=== PATIENT | female | born 1935 | race African-American/Black ===

== ENCOUNTER 2017-04-12 13:41 | Emergency (ER) | payer MEDICAID, MEDICARE, OTHER ==
[~2017-04-12] VITALS: Ht 160 cm; Wt 84.4 kg
[~2017-04-12 13:41] MED LIST: PERCOCET 5-3251 EACH ORAL
[2017-04-12] MEDS ORDERED: BENAZEPRIL HCL40 MG ORAL (14:01)
[2017-04-12] MEDS ORDERED: HYDROCHLOROTHIA50 MG ORAL (14:01)
[2017-04-12 14:05] VITALS: BP 139/69
[2017-04-12] MEDS ORDERED: BRIMONIDINE TART5 ML BOTH EYES (14:05)
[2017-04-12] MEDS ORDERED: TIMOPTIC 0.5%1 DRO1 BOTH EYES (14:05)
[2017-04-12] MEDS ORDERED: Albuterol ud Inhalation HHN ONE (14:30)
--- NOTE | 2017-04-12 15:01 | Emergency Room Report ---
History of Present Illness General Chief Complaint: Upper Respiratory Illness Source: Patient Present Illness HPI 81YOF walk-in with 4 days productive white sputum cough. No sinus congestion or sore throat, chest pain, or fever/chills. Not taking any medications. Lives at home. History of DM with glaucoma. Allergies: Coded Allergies: No Known Allergies (Unverified , 02/18/15) Patient History Past Medical History: DM Past Surgical History: none Pertinent Family History: none Social History: Denies: alcohol use, drug use, smoking Now: No Immunizations: UTD Reviewed Nursing Documentation: PMH: Agreed, PSxH: Agreed Nursing Documentation-PM Past Medical History: No History, Except For Hx Hypertension: Yes Hx Diabetes: Yes Review of Systems All Other Systems: negative except mentioned in HPI Physical Exam Vital Signs Date Time Temp Pulse Resp B/P Pulse Ox O2 Delivery O2 Flow Rate FiO2 04/12/17 13:55 96.1 59 16 134/63 99 Room Air 04/12/17 14:35 21 Sp02 EP Interpretation: reviewed, normal General Appearance: normal inspection, well appearing, no apparent distress, alert, GCS 15, non-toxic, other - Elderly well appearing lady sitting upright in stretcher. Conversant, pleasant Head: normocephalic, atraumatic Eyes: bilateral eye EOMI, bilateral eye PERRL ENT: normal ENT inspection, hearing grossly normal, normal voice Neck: normal inspection, full range of motion, supple, no meningismus, no bony tend Respiratory: normal inspection, lungs clear, normal breath sounds, no respiratory distress, no retraction, crackles, other - Crackles to right posterior upper lung Cardiovascular #1: regular rate, rhythm, no edema Gastrointestinal: normal inspection, normal bowel sounds, non tender, soft, no guarding, no hernia Genitourinary: no CVA tenderness Musculoskeletal: normal inspection, back normal, normal range of motion, Petey' s Sign negative Neurologic: normal inspection, alert, oriented x3, responsive, jailer III-XII nml as tested, motor strength/tone normal, speech normal Psychiatric: normal inspection, judgement/insight normal, mood/affect normal Skin: normal inspection, normal color, no rash Medical Decision Making Diagnostic Impression: Primary Impression: CAP (community acquired pneumonia) Additional Impression: Cough ER Course 81 YOF with clinical PNA. Crackles to right upper chest CXR without lobar PNA Afebrile. Will tx empirically for CAP Initial dose of Azithro given in ED Rx 4 days Azithro, T#3 as needed for cough Close PMD followup Chest X-Ray Diagnostic Results EP Interpretation: Yes Findings: no consolidation, no effusion, no pneumothorax, no acute cardiopulmonary disease Number of Views: 1 Last Vital Signs Date Time Temp Pulse Resp B/P Pulse Ox O2 Delivery O2 Flow Rate FiO2 04/12/17 14:35 21 04/12/17 14:35 54 16 99 Room Air 04/12/17 13:55 96.1 134/63 Status: improved Disposition: HOME, SELF-CARE Referrals: [facility] (PCP) MURALI JACKSON M.D. Apr 12, 2017 15:01
[2017-04-12] MEDS ORDERED: ZITHROMAX250 MG ORAL (15:03)
[2017-04-12] MEDS ORDERED: ACETAMINOPHEN-1 EAC1 ORAL (15:03)
[2017-04-12] MEDS ORDERED: Azithromycin 250mg tab ORAL ONE (15:15)
[2017-04-12 15:30] VITALS: BP 122/105
--- NOTE | 2017-04-13 12:17 | Diagnostic Imaging Report ---
Indication: Dyspnea Comparison: None A single view chest radiograph was obtained. Findings: Heart is enlarged. The lungs are clear. Bones are osteopenic. The pulmonary vascularity is normal. There are no pleural effusions are seen. Impression: Cardiomegaly. No acute findings
== END 2017-04-12 15:30 | disposition home or self-care (01) ==
LOC: EMR 14:53
DX: J18.9 Pneumonia, unspecified organism (principal); R05 Cough; E11.9 Type 2 diabetes mellitus without complications; I10 Essential (primary) hypertension
CPT/HCPCS: 71010; 94640; 99283

== ENCOUNTER 2018-11-04 13:30 | Inpatient (IN) | payer MEDICARE, MEDICAID ==
[~2018-11-04] VITALS: Ht 160 cm; Wt 79.8 kg
[~2018-11-04 13:30] MED LIST changes: +ACETAMINOPHEN-1 EAC1 ORAL; +BENAZEPRIL HCL40 MG ORAL; +BRIMONIDINE TART5 ML BOTH EYES; +DILT-XR120 MG PO; +HYDROCHLOROTHIA50 MG ORAL; +TIMOPTIC 0.5%1 DRO1 BOTH EYES; +ZITHROMAX250 MG ORAL
[2018-11-04 13:45] VITALS: BP 182/97
[2018-11-04] MEDS ORDERED: UNOBMED (13:45)
[2018-11-04] MEDS ORDERED: Sodium Chloride 500ML 500 ML IV ONE (13:54)
--- NOTE | 2018-11-04 13:57 | NUR ---
ED Nurse Note: Pt. AAOx4. ambulatory with jeanne jolley. Pt. came in here due to CP that started last night between 9-10pm. Per pt. pain is noted on the mid-sternum area nonradiating. Did not take any pain medication for it.
--- NOTE | 2018-11-04 14:29 | NUR ---
ED Nurse Note: Blood drawn and sent to lab.
--- NOTE | 2018-11-04 14:39 | Diagnostic Imaging Report ---
. Indication: Chest pain Technique: XRAY Chest 1v Comparison: 05/29/2018 Findings: Stable cardiomegaly. There is pulmonary vascular congestion with subtle haziness of the central pulmonary vasculature which may suggest developing mild interstitial edema. No definite focal consolidation. No silhouetting of the heart borders or diaphragms. No radiographically appreciable pleural effusion. No pneumothorax. There are degenerative changes of the spine and osteopenia. No acute osseous normality. Impression: Cardiomegaly with pulmonary vascular congestion and findings suggesting early/mild interstitial edema.
--- NOTE | 2018-11-04 14:41 | Emergency Room Report ---
History of Present Illness General Chief Complaint: Chest Pain Source: Patient Present Illness HPI Patient presents with complaints of midsternal chest pain and shortness of breath Reports that the short of breath is worsened with exertion Ongoing for the past 3-4 days Denies any cough Denies any headache denies any abdominal pain Denies any recent travel or pleurisy denies any calf pain she has had some mild swelling Denies being on any diuretics Allergies: Coded Allergies: No Known Allergies (Unverified , 02/18/15) Patient History Past Medical History: see triage record Pertinent Family History: none Now: No Reviewed Nursing Documentation: PMH: Agreed; PSxH: Agreed Nursing Documentation-PMH Hx Hypertension: Yes Hx Diabetes: Yes Review of Systems All Other Systems: negative except mentioned in HPI Physical Exam Vital Signs Date Time Temp Pulse Resp B/P (MAP) Pulse Ox O2 Delivery O2 Flow Rate FiO2 11/04/18 13:39 98.4 83 24 188/102 98 Room Air Sp02 EP Interpretation: reviewed, normal General Appearance: mild distress - Mild tachypneic Head: normocephalic, atraumatic Eyes: bilateral eye PERRL, bilateral eye EOMI ENT: hearing grossly normal, normal pharynx, TMs + canals normal, uvula midline Neck: full range of motion, supple, no meningismus, no bony tend Respiratory: no respiratory distress, no retraction, no accessory muscle use, crackles - Bilaterally Cardiovascular #1: normal peripheral pulses, no gallop, no JVD, no murmur, irregularly irregular Gastrointestinal: normal bowel sounds, non tender, soft, no mass, no organomegaly, non-distended, no guarding, no hernia, no pulsatile mass, no rebound Genitourinary: no CVA tenderness Musculoskeletal: normal inspection Neurologic: oriented x3, responsive, cane furniture maker III-XII nml as tested, motor strength/ tone normal, sensory intact Psychiatric: mood/affect normal Skin: warm/dry, palpation normal, other - Mild edema bilaterally Lymphatic: normal inspection, no adenopathy Medical Decision Making Diagnostic Impression: Primary Impression: ACS (acute coronary syndrome) Additional Impression: CHF (congestive heart failure) ER Course Patient is a fairly complex patient with multiple differential to consideration including but not limited to cardiac cardiopulmonary and vascular emergencies Patient's blood work is appropriate imaging studies obtained given the patient' s complaints and presentation requires further inpatient care Labs Test 11/04/18 14:16 White Blood Count 7.3 K/UL (4.8-10.8) Red Blood Count 4.21 M/UL (4.20-5.40) Hemoglobin 12.0 G/DL (12.0-16.0) Hematocrit 37.4 % (37.0-47.0) Mean Corpuscular Volume 89 FL (80-99) Mean Corpuscular Hemoglobin 28.4 PG (27.0-31.0) Mean Corpuscular Hemoglobin Concent 31.9 G/DL (32.0-36.0) Red Cell Distribution Width 15.3 % (11.6-14.8) Platelet Count 172 K/UL (150-450) Mean Platelet Volume 7.7 FL (6.5-10.1) Neutrophils (%) (Auto) 66.2 % (45.0-75.0) Lymphocytes (%) (Auto) 22.2 % (20.0-45.0) Monocytes (%) (Auto) 9.1 % (1.0-10.0) Eosinophils (%) (Auto) 1.5 % (0.0-3.0) Basophils (%) (Auto) 0.9 % (0.0-2.0) Prothrombin Time 12.1 SEC (9.30-11.50) Prothromb Time International Ratio 1.2 (0.9-1.1) Activated Partial Thromboplast Time 30 SEC (23-33) Sodium Level 142 MMOL/L (136-145) Potassium Level 3.2 MMOL/L (3.5-5.1) Chloride Level 103 MMOL/L (98-107) Carbon Dioxide Level 28 MMOL/L (21-32) Anion Gap 11 mmol/L (5-15) Blood Urea Nitrogen 18 mg/dL (7-18) Creatinine 1.2 MG/DL (0.55-1.30) Estimat Glomerular Filtration Rate mL/min (>60) Glucose Level 100 MG/DL (74-106) Calcium Level 9.3 MG/DL (8.5-10.1) EKG Diagnostic Results Rate: normal Rhythm: other - Irregularly irregular ST Segments: no acute changes Rhythm Strip Diag. Results EP Interpretation: yes Rate: 80 Rhythm: no PVC's, no ectopy, other - Irregularly Chest X-Ray Diagnostic Results Chest X-Ray Diagnostic Results : Chest X-Ray Ordered: Yes # of Views/Limited/Complete: 1 View Indication: Chest Pain EP Interpretation: Yes Interpretation: no consolidation, no pneumothorax, other - Cardiomegaly, pulmonary congestion Impression: Other - CHF Last Vital Signs Date Time Temp Pulse Resp B/P (MAP) Pulse Ox O2 Delivery O2 Flow Rate FiO2 11/04/18 13:45 98.4 95 27 182/97 96 Room Air Status: improved Disposition: ADMITTED INPATIENT Condition: Serious Referrals: [facility] (PCP) Felicita Gilliam DO Nov 04, 2018 14:41
[2018-11-04 14:45] LABS: BASOPHILS % (AUTO) 0.9 % (0.0-2.0); EOSINOPHILS % (AUTO) 1.5 % (0.0-3.0); HEMATOCRIT 37.4 % (37.0-47.0); LYMPHOCYTES % (AUTO) 22.2 % (20.0-45.0); MEAN CORPUSCULAR VOLUME 89 FL (80-99); MONOCYTES % (AUTO) 9.1 % (1.0-10.0); NEUTROPHILS % (AUTO) 66.2 % (45.0-75.0); PLATELET COUNT 172 K/UL (150-450); RED BLOOD COUNT 4.21 M/UL (4.20-5.40); RED CELL DISTRIBUTION WIDTH 15.3 % (11.6-14.8); WHITE BLOOD COUNT 7.3 K/UL (4.8-10.8)
[2018-11-04 14:49] LABS: INR 1.2 (0.9-1.1)
[2018-11-04 14:52] LABS: ANION GAP 11 mmol/L (5-15); BLOOD UREA NITROGEN 18 mg/dL (7-18); CALCIUM 9.3 MG/DL (8.5-10.1); CARBON DIOXIDE 28 MMOL/L (21-32); CHLORIDE 103 MMOL/L (98-107); CREATININE 1.2 MG/DL (0.55-1.30); POTASSIUM 3.2 MMOL/L (3.5-5.1); SODIUM 142 MMOL/L (136-145)
[2018-11-04 15:05] LABS: ALANINE AMINOTRANSFERASE 38 U/L (12-78); ALBUMIN 3.1 G/DL (3.4-5.0); ALBUMIN/GLOBULIN RATIO 0.7 (1.0-2.7); ALKALINE PHOSPHATASE 89 U/L (46-116); ASPARTATE AMINO TRANSFERASE 31 U/L (15-37); BILIRUBIN,TOTAL 0.8 MG/DL (0.2-1.0); CREATINE KINASE 79 U/L (26-308)
[2018-11-04 15:29] VITALS: BP 195/114
[2018-11-04 17:02] VITALS: BP 175/151
--- NOTE | 2018-11-04 18:00 | NUR ---
NURSE NOTES: Received report from [facility] FLOORMAN over telephone awaiting arrival.
--- NOTE | 2018-11-04 18:00 | NUR ---
ED Nurse Note: RN attemtped to give report but track worker is not available at this time. Will try again.
[2018-11-04 18:18] VITALS: BP 145/70
--- NOTE | 2018-11-04 18:19 | NUR ---
ED Nurse Note: Report given to LIZABETH Ryder at ext [phone].
--- NOTE | 2018-11-04 18:58 | NUR ---
NURSE NOTES: Received pt from ER on [facility] with family at bedside. No distress noted. Bed in lowest position with side rails up x2 and call light in reach. Tele monitor applied. Pt's belongings list reviewed and signed. Will endorse admission to night stocker RN.
--- NOTE | 2018-11-04 19:57 | NUR ---
HAND-OFF: Report given to Mahogany Olson RN. Endorsed admission to night order selector RN.
[2018-11-04 20:00] VITALS: BP 153/100
--- NOTE | 2018-11-04 20:06 | NUR ---
NURSE NOTES: Received report from LIZABETH Ryder. Patient is awake lying semi-theodore's; resting comfortably. No signs of acute distress noted; denies pain at this time. Family members at bedside. AOx4; able to make needs known. Ambulates with cane and assistance. Checked IV site; patent and flushed. No erythema, bleeding, or infiltration noted. Skin assessment performed; no wounds noted. Skin intact. Bed at lowest position, brakes on, siderails up x3. Call light within reach. Will continue to monitor.
[2018-11-04] MEDS ORDERED: NORCO 5-325 TA1 EACH ORAL (20:22)
[2018-11-04] MEDS ORDERED: LATANOPROST2.5 ML BOTH EYES (20:23)
--- NOTE | 2018-11-04 20:28 | NUR ---
NURSE NOTES: Called Dr. Loyola for admission orders. Received new orders including no venous duplex order for SCDs. Noted and carried out.
[2018-11-04] MEDS ORDERED: Norco 5mg/325mg tab ORAL PRN (20:30)
[2018-11-04] MEDS ORDERED: Latanoprost 0.005% Opth 2.5ml Soln BOTH EYES SCH (21:00)
[2018-11-04] MEDS ORDERED: Carvedilol 12.5mg tab ORAL SCH (21:00)
[2018-11-04] MEDS: Eliquis 2.5mg tablet ORAL SCH (21:30)
--- NOTE | 2018-11-04 22:03 | NUR ---
NURSE NOTES: Called Dr. Loyola regarding patient's request for Gabapentin 300 mg PO TID medication to be continued. Received order to continue medication from Dr. Loyola. Noted and carried out.
[2018-11-04] MEDS: Benazepril 10mg tab ORAL SCH (23:07)
[2018-11-05] VITALS: BP_SYST 153; BP_SYST 155; BP_DIAS 73
--- NOTE | 2018-11-05 02:15 | Consultation ---
DATE OF CONSULTATION: 11/04/2018 CARDIOLOGY CONSULTATION CONSULTING PHYSICIAN: John Kilgore M.D. REQUESTING PHYSICIAN: Joaquin Loyola M.D. REASON FOR CONSULTATION: Chest pain, congestive heart failure, and malignant range hypertension. HISTORY OF PRESENT ILLNESS: This is an 82-year-old female with a history of hypertension and irregular heartbeat. She has had a couple of days of cough and congestion with increasing shortness of breath. Today, she developed chest pain. She thinks the chest pain is associated with coughing; however, she denies any other constitutional symptoms. She notes compliance with her medications and is unaware of having uncontrolled blood pressure like this in the past, although she does take blood pressure medication regularly. PAST MEDICAL HISTORY: Includes hypertension, atrial fibrillation, and type 2 diabetes mellitus. ALLERGIES: None. MEDICATIONS: Prior to admission include benazepril, Eliquis, and another blood pressure medicine that starts with the letter C. FAMILY HISTORY: Noncontributory. SOCIAL HISTORY: She does not smoke, drink alcohol, or use illicit drugs. REVIEW OF SYSTEMS: She may have had some fevers. No chills. She denies retinopathy or hearing loss. There is no history of asthma. She has not had pneumonia. There is no history of seizure or stroke. She is unaware of any history of thyroid disorder. She does not know her cholesterol level. She denies melena, bright red blood per rectum, or change in bowel habits. She denies any history of kidney disease. PHYSICAL EXAMINATION: VITAL SIGNS: Afebrile, blood pressure 188/102, pulse 83, respiratory rate 24, and oxygen saturation on room air 98%. HEENT: Normocephalic and atraumatic. Conjunctivae pink. Sclerae are anicteric. Oropharynx clear. Mucous membranes moist. NECK: Supple. Jugular venous pressure elevated. Carotid upstrokes without delay or bruits. No thyromegaly. LUNGS: Bilateral rales. No wheezing. Few rhonchi. CARDIAC: Irregularly irregular. Normal S1 and S2. A 1/6 systolic murmur at apex. ABDOMEN: Soft and nontender. EXTREMITIES: Good pulses. No edema. NEUROLOGIC: Nonfocal. LABORATORY AND DIAGNOSTIC DATA: EKG reveals atrial fibrillation with nonspecific ST-T wave changes. Chest x-ray reveals mild congestive heart failure. BUN is 18, creatinine 1.2, glucose 100, sodium 142, potassium 3.2, and bicarbonate 28. White count 7.3 and hemoglobin 12. Natriuretic peptide is 3372. Albumin 3.1 and troponin is 0.022. IMPRESSION: 1. Acute coronary syndrome. 2. Malignant range hypertension/hypertensive urgency. 3. Acute diastolic congestive heart failure. 4. Mild protein-calorie malnutrition. 5. Hypokalemia. 6. Atrial fibrillation, rate controlled. PLAN: 1. Cardiac monitoring. 2. Replace potassium. 3. Serial troponin. 4. Diuresis. 5. Stepwise titration of antihypertensive regimen. 6. Continue Eliquis for cardioembolic prophylaxis. 7. Echocardiogram. 8. Further recommendations will follow based on results of preliminary workup and response to therapy. John Kilgore M.D. DR: SOLANGE JOB#: [id number] CC:
--- NOTE | 2018-11-05 03:52 | NUR ---
NURSE NOTES: Patient is asleep lying semi-theodore's; resting comfortably. No signs of acute distress or pain noted at this time. Family member at bedside.
[2018-11-05 04:00] VITALS: BP 158/83
[2018-11-05 05:19] LABS: BASOPHILS % (AUTO) 0.4 % (0.0-2.0); EOSINOPHILS % (AUTO) 1.8 % (0.0-3.0); HEMATOCRIT 38.6 % (37.0-47.0); HEMOGLOBIN 12.4 G/DL (12.0-16.0); LYMPHOCYTES % (AUTO) 20.3 % (20.0-45.0); MEAN CORPUSCULAR VOLUME 88 FL (80-99); MONOCYTES % (AUTO) 8.6 % (1.0-10.0); NEUTROPHILS % (AUTO) 68.9 % (45.0-75.0); PLATELET COUNT 168 K/UL (150-450); RED BLOOD COUNT 4.38 M/UL (4.20-5.40); RED CELL DISTRIBUTION WIDTH 15.1 % (11.6-14.8); WHITE BLOOD COUNT 6.2 K/UL (4.8-10.8)
[2018-11-05 06:11] LABS: ANION GAP 12 mmol/L (5-15); BLOOD UREA NITROGEN 18 mg/dL (7-18); CALCIUM 9.3 MG/DL (8.5-10.1); CARBON DIOXIDE 27 MMOL/L (21-32); CHLORIDE 104 MMOL/L (98-107); CHOLESTEROL 152 MG/DL (< 200); CREATININE 1.3 MG/DL (0.55-1.30); HDL CHOLESTEROL 44 MG/DL (40-60); POTASSIUM 3.3 MMOL/L (3.5-5.1); SODIUM 143 MMOL/L (136-145); TRIGLYCERIDES 58 MG/DL (30-150)
[2018-11-05 08:00] VITALS: BP 152/86
[2018-11-05] MEDS ORDERED: LIPITOR80 MG ORAL (08:24)
--- NOTE | 2018-11-05 08:30 | NUR ---
NURSE NOTES: Received report from Mahogany Olson RN. Pt in bed awake with family at bedside in cot. No distress noted. Pt's needs met. Bed in lowest position with side rails up x2 and call light in reach. Notified MD Loyola of Mg of 1.4 and K of 3.3 as well as episode of 170 AFIB w/ RVR. New orders noted and carried out. Will continue to monitor.
[2018-11-05] MEDS ORDERED: Benazepril 10mg tab ORAL SCH (09:00)
--- NOTE | 2018-11-05 09:52 | History & Physical ---
History and Physical History & Physicial dict ACS CHF HTN urgency A fib RVR Joaquin Loyola MD Nov 05, 2018 09:52
[2018-11-05] MEDS: Benazepril 10mg tab ORAL SCH ×2 (10:09→17:45)
[2018-11-05] MEDS: Carvedilol 25mg Tab ORAL SCH ×2 (10:10→20:36)
[2018-11-05] MEDS: Eliquis 2.5mg tablet ORAL SCH ×2 (10:10→17:43)
--- NOTE | 2018-11-05 11:17 | NUR ---
CASE MANAGEMENT:REVIEW 82 YR OLD FEMALE FROM HOME CC; CHEST PAIN SI: ACS. CHF. HTN URGENCY. AFIB W/RVR 98.4 83 24 188/102 98% ON RA K-3.2 BNP+3372 TROPONIN(-) IS: 500CC NS BOLUS IV HYDRALAZINE ASA 325MG PO IV LASIX KCL PO CXR : TO TELEMETRY PLAN: 2DECHO INTERQUAL CRITERIA MET
[2018-11-05 12:00] VITALS: BP 146/75
--- NOTE | 2018-11-05 14:45 | History and Physical Report ---
DATE OF ADMISSION: 11/04/2018 CHIEF COMPLAINT: Chest pain and short of breath. HISTORY OF PRESENT ILLNESS: The patient is an 82-year-old woman, who has recurrent admissions for congestive heart failure and chest pain. She is known to have cardiac disease and states that she takes her medications regularly. She was hospitalized here several months ago for similar condition and again a few months later at another hospital. At this time, she states that she had chest pain off and on for about two days, associated with swelling of her ankles and increasing shortness of breath. She came to the emergency department, was found to have severe hypertension and acute coronary syndrome. PAST MEDICAL HISTORY: Hypertension, atrial fibrillation, diabetes, and congestive heart failure. ALLERGIES: None. MEDICATIONS: She is not certain what all her medications are, but she is on Eliquis and benazepril as well as atorvastatin. SOCIAL HISTORY: She does not drink or smoke. REVIEW OF SYSTEMS: Otherwise unremarkable. She is feeling better today. PHYSICAL EXAMINATION: GENERAL: The patient is alert and responds appropriately. VITAL SIGNS: Stable with most recent blood pressure 152/86 and normal heart rate. She is in atrial fibrillation on the monitor. HEENT: Head is normocephalic. NECK: No jugular venous distention. CHEST: Clear. CARDIAC: Rhythm seems regular with frequent irregular beats. ABDOMEN: Soft and nontender. Liver and spleen not enlarged. EXTREMITIES: No clubbing, cyanosis, or edema. DIAGNOSTIC AND LABORATORY DATA: Chest x-ray shows cardiomegaly with pulmonary vascular congestion and interstitial edema. Blood testing shows hemoglobin is 12, white count is normal, platelets are normal. Chemistry shows potassium is low. BNP is elevated at 3300. Troponin is normal. LDL is 121. IMPRESSION: 1. Acute coronary syndrome. 2. Congestive heart failure. 3. Hypertensive urgency. 4. Atrial fibrillation with rapid ventricular response. 5. Diabetes. PLAN: The patient's medication will be updated as information becomes available. We will give medications to control the heart rate and replace potassium. Cardiology has seen the patient and further orders have been initiated. Joaquin Loyola M.D. : DIEUDONNE JOB#: [id number] CC: Joaquin Loyola M.D.; Fax#: [phone] John Kilgore M.D.
[2018-11-05 16:00] VITALS: BP 128/73
--- NOTE | 2018-11-05 19:46 | NUR ---
HAND-OFF: Report given to Kayla Phillips RN. Pt stable.
--- NOTE | 2018-11-05 19:47 | NUR ---
NURSE NOTES: Received patient from LIZABETH Ryder and LIZABETH Schmid. Patient on bed AOx4, no signs of pain at this time. Mg Sulfate 1gm running as ordered. Call light within reach. Bed brakes engaged. Family member at bedside.
[2018-11-05 20:00] VITALS: BP 144/85
--- NOTE | 2018-11-05 20:30 | Progress Note ---
DATE: 11/05/2018 CARDIOLOGY PROGRESS NOTE: SUBJECTIVE: The patient without chest pain or shortness of breath. Troponin negative x3. Blood pressure control improved. She has less shortness of breath. PHYSICAL EXAMINATION: VITAL SIGNS: Blood pressure 146/75, pulse 81, and respirations 18. Afebrile. NECK: Supple. LUNGS: Few rales. CARDIAC: Regularly irregular rhythm and rate. Normal S1, S2 with a fourth heart sound. ABDOMEN: Soft. No edema. LABORATORY AND DIAGNOSTIC DATA: Echocardiogram revealed normal ejection fraction, mild mitral regurgitation, moderate tricuspid regurgitation, and severe pulmonary hypertension. Magnesium 1.4, potassium 3.9, BUN 18, and creatinine 1.3. IMPRESSION: 1. Malignant hypertension, improved. 2. Acute coronary insufficiency, resolved. No evidence of acute myocardial infarction. 3. Hypokalemia. 4. Hypomagnesemia. 5. Acute on chronic diastolic congestive heart failure. 6. Paroxysmal atrial fibrillation. PLAN: 1. Replace potassium. 2. Intravenous magnesium. 3. Maximize anti-failure and antihypertensive regimen. 4. Reassess for long-term diuretic needs. 5. Continue cardioembolic prophylaxis with apixaban. John Kilgore M.D. DR: RAMEZ JOB#: [id number] CC:
[2018-11-05] MEDS: Atorvastatin 20mg tab ORAL SCH (20:38)
[2018-11-05] MEDS: Latanoprost 0.005% Opth 2.5ml Soln BOTH EYES SCH (21:40)
--- NOTE | 2018-11-05 23:50 | NUR ---
NURSE NOTES: 4g of Mg Sulfate given. Tolerated well. Not in distress.
[2018-11-06] VITALS: BP 137/74
--- NOTE | 2018-11-06 00:51 | NUR ---
RECIEVE REPORT FROM CARIN AT 1900.PATIENT RESTING COMFORTABLE, NO DISTRESS NOTED. LUPE LIGHT WITHIN REACH.
[2018-11-06 04:00] VITALS: BP 133/73
--- NOTE | 2018-11-06 07:10 | Cardiology Report ---
APPROVED REPORT EXAM: Two-dimensional and M-mode echocardiogram with Doppler and color Doppler. INDICATION Atrial Fibrillation M-Mode DIMENSIONS IVSd1.0 (0.7-1.1cm)Left Atrium (MM)5.1 (1.6-4.0cm) LVDd4.3 (3.5-5.6cm)Aortic Root3.0 (2.0-3.7cm) PWd1.0 (0.7-1.1cm)Aortic Cusp Exc.2.0 (1.5-2.0cm) LVDs2.8 (2.5-4.0cm) PWs1.2 cm Normal left ventricular chamber size, systolic function and wall motion. Left ventricular ejection fraction estimated to be 55 %. No evidence of left ventricular hypertrophy. Anterior Echo-free space, may be due to pericardial fat or effusion. Mild bi-atrial enlargement. Right ventricular chamber size is within normal limits. Mild focal aortic valve sclerosis with adequate cusp excursion. Mildly thickened mitral valve leaflets with normal excursion. Mild mitral annulus and aortic root calcification. Pulmonic valve not well visualized. Normal tricuspid valve structure. Subcostal views not obtainable. A color flow and spectral Doppler study was performed and revealed: No aortic insufficiency. Mild mitral regurgitation. Left ventricular diastolic function could not be determined due to A-Fib. Moderate tricuspid regurgitation. Tricuspid systolic velocities suggests peak right ventricular systolic pressure of 63 mmHg, consistent with severe pulmonary hypertension. No pulmonic regurgitation present.
--- NOTE | 2018-11-06 07:30 | NUR ---
NURSE NOTES: Received report by Kayla BARONE. Received patient in bed sleeping, daughter on bedside. Patient looks comfortably, no acute distress noted. Bed locked and in low position, side rails up X2, call light within reach.
[2018-11-06 07:43] LABS: ALANINE AMINOTRANSFERASE 30 U/L (12-78); ALBUMIN 2.7 G/DL (3.4-5.0); ALBUMIN/GLOBULIN RATIO 0.7 (1.0-2.7); ALKALINE PHOSPHATASE 76 U/L (46-116); ANION GAP 8 mmol/L (5-15); ASPARTATE AMINO TRANSFERASE 21 U/L (15-37); BILIRUBIN,TOTAL 0.8 MG/DL (0.2-1.0); BLOOD UREA NITROGEN 16 mg/dL (7-18); CALCIUM 8.8 MG/DL (8.5-10.1); CARBON DIOXIDE 27 MMOL/L (21-32); CHLORIDE 105 MMOL/L (98-107); CREATININE 1.2 MG/DL (0.55-1.30); POTASSIUM 4.1 MMOL/L (3.5-5.1); SODIUM 140 MMOL/L (136-145)
[2018-11-06 08:00] VITALS: BP 123/61
[2018-11-06] MEDS: Eliquis 2.5mg tablet ORAL SCH ×2 (09:24→17:24)
[2018-11-06] MEDS: Benazepril 10mg tab ORAL SCH ×2 (09:25→17:25)
[2018-11-06] MEDS: Carvedilol 25mg Tab ORAL SCH ×2 (09:25→21:17)
[2018-11-06 12:00] VITALS: BP 130/76
[2018-11-06 16:00] VITALS: BP 144/85
[2018-11-06] MEDS ORDERED: Tubing IV Secondary IV ONE (17:36)
[2018-11-06] MEDS ORDERED: NS 275ml ONE (17:36)
--- NOTE | 2018-11-06 19:57 | Pulmonology Progress Note ---
Assessment/Plan Assessment/Plan 1. Acute coronary syndrome. 2. Congestive heart failure. 3. Hypertensive urgency. 4. Atrial fibrillation with rapid ventricular response. 5. Diabetes. better today BP control .diuresis per cards nebs and suction as needed bowel care AC per RX dc planning when cleared by cards Subjective HEENT: Repors: no symptoms Respiratory: Reports: no symptoms Cardiovascular: Reports: no symptoms Gastrointestinal/Abdominal: Reports: bloating Genitourinary: Reports: no symptoms Skin: Reports: no symptoms Endocrine: Reports: no symptoms Allergies: Coded Allergies: No Known Allergies (Unverified , 02/18/15) Subjective no events still complains of some abdmoinal symptoms no cp nv or bleeding tolerting po on O2 no distress Objective Last 24 Hour Vital Signs Date Time Temp Pulse Resp B/P (MAP) Pulse Ox O2 Delivery O2 Flow Rate FiO2 11/06/18 17:25 130/70 11/06/18 16:00 85 11/06/18 16:00 98.4 84 20 144/85 (104) 98 11/06/18 12:00 77 11/06/18 12:00 97.3 83 20 130/76 (94) 96 11/06/18 09:25 73 123/61 11/06/18 09:25 123/61 11/06/18 09:00 Room Air 11/06/18 08:00 82 11/06/18 08:00 97.0 73 20 123/61 (81) 98 11/06/18 04:00 80 11/06/18 04:00 97.0 89 18 133/73 (93) 99 11/06/18 00:00 97.3 82 20 137/74 (95) 98 11/05/18 23:49 76 11/05/18 21:00 Room Air 11/05/18 20:36 86 142/82 11/05/18 20:00 97.9 96 20 144/85 (104) 98 Intake and Output 11/05/18 11/06/18 19:00 07:00 Intake Total 360 ml 300 ml Balance 360 ml 300 ml Intake Oral 360 ml IV Total 300 ml # Voids 3 General Appearance: WD/WN Respiratory/Chest: crackles/rales Cardiovascular: normal rate, regular rhythm, murmur systolic, edema Abdomen: soft, non tender, no organomegaly Skin: no rash, no ulcers Neurologic/Psychiatric: oriented x 3, normal mood/affect Lymphatic: no neck adenopathy Laboratory Tests 11/06/18 06:00: Sodium Level 140, Potassium Level 4.1, Chloride Level 105, Carbon Dioxide Level 27, Anion Gap 8, Blood Urea Nitrogen 16, Creatinine 1.2, Estimat Glomerular Filtration Rate , Glucose Level 114H, Calcium Level 8.8, Total Bilirubin 0.8, Aspartate Amino Transf (AST/SGOT) 21, Alanine Aminotransferase (ALT/SGPT) 30, Alkaline Phosphatase 76, Pro-B-Type Natriuretic Peptide 1049H, Total Protein 6.7 , Albumin 2.7L, Globulin 4.0, Albumin/Globulin Ratio 0.7L Current Medications Medications (Trade) Dose Ordered Sig/Kvng Route PRN Reason Start Time Stop Time Status Last Admin Dose Admin Acetaminophen/ Hydrocodone Bitart ([place] 5/325) 1 tab Q8H PRN ORAL Moderate Pain (Pain Scale 4-6) 11/04/18 20:30 11/11/18 20:29 Apixaban (Eliquis) 2.5 mg BID ORAL 11/04/18 21:00 12/04/18 20:59 11/06/18 17:24 Atorvastatin Calcium (Lipitor) 40 mg BEDTIME ORAL 11/05/18 21:00 12/05/18 20:59 11/05/18 20:38 Benazepril HCl (Lotensin) 20 mg BID ORAL 11/04/18 22:00 12/04/18 21:59 11/06/18 17:25 Carvedilol (Coreg) 25 mg EVERY 12 HOURS ORAL 11/05/18 09:00 12/04/18 20:59 11/06/18 09:25 Gabapentin (Neurontin) 300 mg THREE TIMES A DAY ORAL 11/04/18 22:45 12/04/18 22:44 11/06/18 17:26 Latanoprost (Xalatan) 1 drop QHS BOTH EYES 11/05/18 21:00 12/05/18 20:59 11/05/18 21:40 Magnesium Sulfate 100 ml @ 100 mls/hr DAILY IVPB 11/05/18 09:00 12/05/18 08:59 11/06/18 09:24 Potassium Chloride (K-Dur) 20 meq TWICE A DAY ORAL 11/05/18 09:00 12/05/18 08:59 11/06/18 17:24 Carla Buchanan DO Nov 06, 2018 19:57
[2018-11-06 21:01] VITALS: BP 136/67
[2018-11-06] MEDS: Atorvastatin 20mg tab ORAL SCH (21:17)
[2018-11-06] MEDS: Latanoprost 0.005% Opth 2.5ml Soln BOTH EYES SCH (21:18)
[2018-11-07] VITALS: BP 143/79
[2018-11-07 04:00] VITALS: BP 156/94
--- NOTE | 2018-11-07 04:15 | Progress Note ---
DATE: 11/06/2018 CARDIOLOGY PROGRESS NOTE SUBJECTIVE: The patient has no chest pain or shortness of breath. OBJECTIVE: VITAL SIGNS: Blood pressure 123/61, heart rate 73. Monitored rhythm, sinus. LUNGS: Clear. CARDIAC: Regular. Normal S1 and S2. ABDOMEN: Soft. No edema. LABORATORY DATA: Natriuretic peptide is down to 1049. IMPRESSION: 1. Stable angina pattern, negative troponin x3. No signs of ongoing ischemia. Chest pain on admission precipitated by malignant range of blood pressure. 2. Malignant hypertension, corrected with therapy. 3. Acute on chronic diastolic congestive heart failure, improved ____ diuresis and optimization of antihypertensive and anti-failure regimen. PLAN: 1. Continue current regimen. 2. Replace electrolytes as needed. 3. Discharge planning. 4. Outpatient dietary restriction of sodium. John Kilgore M.D. DR: MATTHEW JOB#: [id number] CC:
--- NOTE | 2018-11-07 06:15 | NUR ---
NURSE NOTES: PATIENT RESTING IN THE BED DENIES CHEST PAIN . FAMILY AT BEDSIDE.
[2018-11-07 08:00] VITALS: BP 153/79
[2018-11-07] MEDS: Benazepril 10mg tab ORAL SCH ×2 (08:24→17:13)
[2018-11-07] MEDS: Carvedilol 25mg Tab ORAL SCH ×2 (08:25→20:59)
[2018-11-07] MEDS: Eliquis 2.5mg tablet ORAL SCH ×2 (08:25→17:13)
[2018-11-07 12:00] VITALS: BP 132/61
--- NOTE | 2018-11-07 14:55 | NUR ---
NURSE NOTES: Received report from LIZABETH Christopher. Patient is in stable condition. No acute distress/SOB noted. Patient denies any pain/discomfort. Will continue plan of care.
[2018-11-07 16:00] VITALS: BP 163/88
--- NOTE | 2018-11-07 16:36 | NUR ---
CASE MANAGEMENT: REVIEW 11/06/2018 SI: ACS. CHF. HTN URGENCY. AFIB W/RVR T 97.3 HR 83 RR 20 B/P 130/76 SATS 96% ON RA GLUCOSE 114 BNP 1049 IS: COREG PO Q12H K DUR PO BID LIPITOR PO QHS ELIQUIS PO BID LOTENSIN PO BID MAG SULFATE IV QD GABAPENTIN PO TID : TO TELEMETRY 11/07/2018 SI: ACS. CHF. HTN URGENCY. AFIB W/RVR T 98.8 HR 90 RR 18 B/P 156/94 SATS 97% ON RA NO LABS TODAY IS: COREG PO Q12H K DUR PO BID LIPITOR PO QHS ELIQUIS PO BID LOTENSIN PO BID MAG SULFATE IV QD GABAPENTIN PO TID PLAN: 1. Continue current regimen. 2. Replace electrolytes as needed. 3. Discharge planning. 4. Outpatient dietary restriction of sodium.
--- NOTE | 2018-11-07 18:45 | Pulmonology Progress Note ---
Assessment/Plan Assessment/Plan 1. Acute coronary syndrome. 2. Congestive heart failure. 3. Hypertensive urgency. 4. Atrial fibrillation with rapid ventricular response. 5. Diabetes. better today BP control diuresis per cards nebs and suction as needed bowel care AC per RX check K dc planning for am, order placed Subjective Constitutional: Reports: no symptoms HEENT: Repors: no symptoms Respiratory: Reports: no symptoms Cardiovascular: Reports: no symptoms Allergies: Coded Allergies: No Known Allergies (Unverified , 02/18/15) Subjective no events still complains of some abdmoinal symptoms no cp nv or bleeding tolerting po on O2 no distress cleared by cards for dc pt cant leave until tomorrow Objective Last 24 Hour Vital Signs Date Time Temp Pulse Resp B/P (MAP) Pulse Ox O2 Delivery O2 Flow Rate FiO2 11/07/18 17:13 163/88 11/07/18 16:00 76 11/07/18 16:00 97.5 84 20 163/88 (113) 97 11/07/18 12:00 97.4 73 20 132/61 (84) 97 11/07/18 12:00 73 11/07/18 09:00 Room Air 11/07/18 08:25 109 177/93 11/07/18 08:24 177/93 11/07/18 08:00 91 11/07/18 08:00 98.1 87 20 153/79 (103) 97 11/07/18 04:00 105 11/07/18 04:00 98.8 90 18 156/94 (114) 97 11/07/18 00:00 98.3 87 20 143/79 (100) 98 11/07/18 00:00 96 11/06/18 21:17 87 136/67 11/06/18 21:00 Room Air 11/06/18 20:00 90 Intake and Output 11/06/18 11/07/18 19:00 07:00 Intake Total 200 ml Balance 200 ml Intake Oral 200 ml # Voids 2 General Appearance: WD/WN Respiratory/Chest: lungs clear, normal breath sounds Cardiovascular: normal rate, regular rhythm Abdomen: soft, non tender, no organomegaly Extremities: no cyanosis Skin: no lesions Neurologic/Psychiatric: alert, oriented x 3 Current Medications Medications (Trade) Dose Ordered Sig/Kvng Route PRN Reason Start Time Stop Time Status Last Admin Dose Admin Acetaminophen/ Hydrocodone Bitart ([place] 5/325) 1 tab Q8H PRN ORAL Moderate Pain (Pain Scale 4-6) 11/04/18 20:30 11/11/18 20:29 Apixaban (Eliquis) 2.5 mg BID ORAL 11/04/18 21:00 12/04/18 20:59 11/07/18 17:13 Atorvastatin Calcium (Lipitor) 40 mg BEDTIME ORAL 11/05/18 21:00 12/05/18 20:59 11/06/18 21:17 Benazepril HCl (Lotensin) 20 mg BID ORAL 11/04/18 22:00 12/04/18 21:59 11/07/18 17:13 Carvedilol (Coreg) 25 mg EVERY 12 HOURS ORAL 11/05/18 09:00 12/04/18 20:59 11/07/18 08:25 Gabapentin (Neurontin) 300 mg THREE TIMES A DAY ORAL 11/04/18 22:45 12/04/18 22:44 11/07/18 17:13 Latanoprost (Xalatan) 1 drop QHS BOTH EYES 11/05/18 21:00 12/05/18 20:59 11/06/18 21:18 Magnesium Sulfate 100 ml @ 100 mls/hr DAILY IVPB 11/05/18 09:00 12/05/18 08:59 11/07/18 08:22 Potassium Chloride (K-Dur) 20 meq TWICE A DAY ORAL 11/05/18 09:00 12/05/18 08:59 11/07/18 17:14 Carla Buchanan DO Nov 07, 2018 18:45
--- NOTE | 2018-11-07 19:11 | NUR ---
HAND-OFF: Report given to LIZABETH Dangelo. Patient is in stable condition. No acute distress/SOB noted. Endorsed plan of care.
--- NOTE | 2018-11-07 19:55 | NUR ---
HAND-OFF: Report given to LIZABETH Godwin.
[2018-11-07 20:00] VITALS: BP 159/103
[2018-11-07] MEDS: Atorvastatin 20mg tab ORAL SCH (20:59)
[2018-11-07] MEDS: Latanoprost 0.005% Opth 2.5ml Soln BOTH EYES SCH (20:59)
--- NOTE | 2018-11-07 21:02 | NUR ---
NURSE NOTES: Recvd pt. Pt is AOX4. Pt is on room air with no sign of sob or resp distress. Iv iste is c/d/i.
[2018-11-07] MEDS ORDERED: Norco 5mg/325mg tab ORAL PRN (21:17)
--- NOTE | 2018-11-07 21:20 | NUR ---
HAND-OFF: Report given to Chalino
--- NOTE | 2018-11-07 21:20 | NUR ---
NURSE NOTES: Report taken from LIZABETH Stevens. Patient transferred from in hospital bed, daughter at bedside. Patient is A&Ox4. On room air. Medications were given before transfer. IV site in clean, dry and intact. No skin issues. Patients blood pressure was high 184/95, no measures taken at that time. Bed in lowest position, call light within reach.
[2018-11-07] MEDS ORDERED: DiphenhydrAMINE 50mg/ml Inj IVP ONE (23:00)
--- NOTE | 2018-11-07 23:07 | NUR ---
NURSE NOTES: Patient notified RN of a new rash developing. Rash is reddened and slightly itchy. Visible from left axillary area to mid back. Patient complains of no pain with the rash. BP was taken again and was high at 192/101, taken on both arms. RN contacted MD. New orders were given for patient.
[2018-11-08] VITALS: BP 172/95
[2018-11-08 04:00] VITALS: BP 123/72
--- NOTE | 2018-11-08 07:28 | NUR ---
HAND-OFF: Report given to LIZABETH Cornell.
[2018-11-08 07:39] LABS: BASOPHILS % (AUTO) 0.4 % (0.0-2.0); EOSINOPHILS % (AUTO) 1.5 % (0.0-3.0); HEMATOCRIT 36.5 % (37.0-47.0); LYMPHOCYTES % (AUTO) 23.8 % (20.0-45.0); MEAN CORPUSCULAR VOLUME 86 FL (80-99); NEUTROPHILS % (AUTO) 60.3 % (45.0-75.0); PLATELET COUNT 150 K/UL (150-450); RED BLOOD COUNT 4.24 M/UL (4.20-5.40); RED CELL DISTRIBUTION WIDTH 15.3 % (11.6-14.8); WHITE BLOOD COUNT 5.1 K/UL (4.8-10.8)
[2018-11-08 07:47] LABS: ANION GAP 7 mmol/L (5-15); BLOOD UREA NITROGEN 13 mg/dL (7-18); CALCIUM 9.1 MG/DL (8.5-10.1); CARBON DIOXIDE 27 MMOL/L (21-32); CHLORIDE 106 MMOL/L (98-107); CREATININE 1.2 MG/DL (0.55-1.30); POTASSIUM 4.7 MMOL/L (3.5-5.1); SODIUM 140 MMOL/L (136-145)
[2018-11-08 08:00] VITALS: BP 143/79
--- NOTE | 2018-11-08 08:58 | General Progress Note ---
Assessment/Plan Assessment/Plan 1. Acute coronary syndrome. 2. Congestive heart failure. 3. Hypertensive urgency. 4. Atrial fibrillation with rapid ventricular response. 5. Diabetes. 6. Rash dc home Lotrisone f/u PMD Subjective Date patient seen: Nov 08, 2018 Time patient seen: 08:57 Cardiovascular: Denies: chest pain Respiratory: Denies: shortness of breath Allergies: Coded Allergies: No Known Allergies (Unverified , 02/18/15) Subjective rash axilla and back Objective Last 24 Hour Vital Signs Date Time Temp Pulse Resp B/P (MAP) Pulse Ox O2 Delivery O2 Flow Rate FiO2 11/08/18 04:00 98.9 86 18 123/72 (89) 100 11/08/18 00:00 99.0 86 18 172/95 (120) 99 11/07/18 23:17 192/101 11/07/18 20:59 82 159/103 11/07/18 20:55 Room Air 11/07/18 20:00 82 11/07/18 20:00 98.4 87 20 159/103 (121) 99 11/07/18 17:13 163/88 11/07/18 16:00 76 11/07/18 16:00 97.5 84 20 163/88 (113) 97 11/07/18 12:00 97.4 73 20 132/61 (84) 97 11/07/18 12:00 73 11/07/18 09:00 Room Air Intake and Output 11/07/18 11/08/18 18:59 06:59 Intake Total 240 ml Balance 240 ml Other 240 ml Laboratory Tests 11/08/18 06:15: White Blood Count 5.1, Red Blood Count 4.24, Hemoglobin 12.0, Hematocrit 36.5L, Mean Corpuscular Volume 86, Mean Corpuscular Hemoglobin 28.2, Mean Corpuscular Hemoglobin Concent 32.8, Red Cell Distribution Width 15.3H, Platelet Count 150, Mean Platelet Volume 7.4, Neutrophils (%) (Auto) 60.3, Lymphocytes (%) (Auto) 23.8, Monocytes (%) (Auto) 14.0H, Eosinophils (%) (Auto) 1.5, Basophils (%) ( Auto) 0.4, Sodium Level 140, Potassium Level 4.7, Chloride Level 106, Carbon Dioxide Level 27, Anion Gap 7, Blood Urea Nitrogen 13, Creatinine 1.2, Estimat Glomerular Filtration Rate , Glucose Level 106, Calcium Level 9.1, Magnesium Level 1.9, Pro-B-Type Natriuretic Peptide 2056H Height (Feet): 5 Height (Inches): 3.00 Weight (Pounds): 176 General Appearance: no apparent distress Cardiovascular: normal rate Skin: rash Joaquin Loyola MD Nov 08, 2018 08:58
[2018-11-08] MEDS ORDERED: Carvedilol 25mg Tab ORAL SCH (09:00)
[2018-11-08] MEDS ORDERED: Benazepril 10mg tab ORAL SCH (09:00)
[2018-11-08] MEDS ORDERED: Eliquis 2.5mg tablet ORAL SCH (09:00)
[2018-11-08] MEDS ORDERED: Norco 5mg/325mg tab ORAL SCH (09:00)
--- NOTE | 2018-11-08 09:00 | NUR ---
NURSE NOTES: During shift change patient seating on bed with out no distress daughter at bed side. patient reported burning under breast RN assessed and rash noted Dr. Loyola notified came and saw the patient medication ordered will follow MD order.
[2018-11-08] MEDS ORDERED: Lotrisone Cream 15gm TOPIC SCH ×2 (09:15→11:00)
[2018-11-08 09:43] VITALS: BP 149/79
--- NOTE | 2018-11-08 11:42 | NUR ---
INSURANCE ALL CLINICALS AND REVIEWS FAXED TO: [facility] [employer] F:[phone]
--- NOTE | 2018-11-08 12:56 | NUR ---
NURSE NOTES: Patient discharged from the unit stable condition, topical medication applied as ordered patient reported burning and itching symptom relieved. Discharge instruction, and belongings given to patient. Transported from the unit to the personal vehicle by wheelchair with staff transferred to the vehicle safe.
[2018-11-08] MEDS ORDERED: Atorvastatin 20mg tab ORAL SCH (21:00)
[2018-11-08] MEDS ORDERED: Latanoprost 0.005% Opth 2.5ml Soln BOTH EYES SCH ×2 (21:00)
--- NOTE | 2018-11-10 08:51 | Discharge Summary ---
Discharge Summary Discharge Summary _ DATE OF ADMISSION: 11/04/2018 DATE OF DISCHARGE: 11/08/2018 DISCHARGED BY: Dr. Loyola REASON FOR ADMISSION: 82 years old female with recurrent admission for chest pain and congestive heart failure, with past medical history of atrial fibrillation, hypertension , congestive heart failure, diabetes mellitus, presented to emergency department with complaints of intermittent chest pain for about 2 days , associated with swelling of her ankles and increased shortness of breath. Upon evaluation emergency department department patient was found to have severe hypertension with blood pressure readings 188/102. Pulse oximetry was stable on room air. Patient was tachypneic with respiratory rate of 24 and tachycardic-106. Troponin was negative. EKG revealed atrial fibrillation with rapid ventricular response. Pro BNP 3372. Chest x-ray revealed cardiomegaly with pulmonary vascular congestion and findings suggestive of mild interstitial edema. Patient admitted with diagnoses of chest pain , possible acute coronary syndrome , congestive heart failure, hypertensive urgency, atrial fibrillation with rapid ventricular response, diabetes. CONSULTANTS: wool sampler HOSPITAL COURSE: Patient admitted to telemetry floor. Cardiology consult was requested. Serial troponin were negative. Heart rate was controlled with beta-tati and Eliquis was continued for antiembolic prophylaxis Antihypertensive regimen was up-titrated as per wool sampler recommendations: patient was on beta-tati and AYN inhibitor, and Clonidine was on board as needed. Echocardiogram revealed preserved ejection fraction 55%. No evidence of left ventricular hypertrophy. Moderate tricuspid regurgitation. Right ventricular systolic pressure of 53 consistent with severe pulmonary hypertension. Patient initially received 1 dose of diuretic. Volumes and cardiorenal parameters were closely monitored. Pro BNP trended down. Supplemental oxygen provided as needed to keep pulse oximetry above 92%. Pulmonary toilet was on board as needed. Lipid panel revealed elevated LDL 121. Patient was educated on low-fat low- cholesterol diabetic cardiac diet. Statin was continued. Per wool sampler initial chest pain was precipitated by malignant range of blood pressure. Acute coronary insufficiency resolved. No evidence of acute myocardial infarction. Renal parameters and electrolytes were closely monitored, and electrolytes corrected as needed. Supportive care provided. Bowel regimen instituted. Patient clinically stabilized and was ready for discharge home. FINAL DIAGNOSES: Hypertensive urgency with malignant hypertension, corrected Acute on chronic diastolic congestive heart failure, improved Acute coronary insufficiency/ acute coronary syndrome - resolved Atrial fibrillation with rapid ventricular response resolved Diabetes mellitus Electrolyte imbalance ( hypomagnesemia, hypokalemia) DISCHARGE MEDICATIONS: List of medication was sent with patient DISCHARGE INSTRUCTIONS: Patient was discharged home. Patient to follow-up with a primary care provider in 1 week. Patient was encouraged to comply with medication regimen. Low-sodium, no concentrated sweets, low-fat , low-cholesterol diet was encouraged. I have been assigned to dictate discharge summary for this account. I was not involved in the patient's management. Sugey Seaman NP Nov 10, 2018 08:51
== END 2018-11-08 12:19 | disposition home or self-care (01) | DRG 305 ==
LOC: EMR 14:18 → 2E 15:45 → EDBEDREQ 17:07 → 3E 11-07 21:17
DX: I16.0 Hypertensive urgency (principal); E44.1 Mild protein-calorie malnutrition; I24.9 Acute ischemic heart disease, unspecified; I11.0 Hypertensive heart disease with heart failure; Z79.01 Long term (current) use of anticoagulants; E87.6 Hypokalemia; I48.0 Paroxysmal atrial fibrillation; E83.42 Hypomagnesemia; I34.0 Nonrheumatic mitral (valve) insufficiency; I36.1 Nonrheumatic tricuspid (valve) insufficiency; I27.20 Pulmonary hypertension, unspecified; E11.22 Type 2 diabetes mellitus with diabetic chronic kidney disease; N18.9 Chronic kidney disease, unspecified
CPT/HCPCS: 36415; 71045; 80048; 80053; 80061; 82550; 82553; 83690; 83735; 83880; 84443; 84484; 85025; 85610; 85730; 93005; 93306; 96374; 99285; J8499